=== PATIENT | female | born 1980 | race Caucasian/White ===

== ENCOUNTER → 2017-06-22 | Outpatient (CLI) | payer OTHER | LOC: COL.RAD 12:26 | DX: Z31.41 Encounter for fertility testing (principal) ==

== ENCOUNTER → 2017-08-12 | Outpatient (CLI) | payer OTHER | LOC: COL.RAD 12:00 | DX: N83.291 Other ovarian cyst, right side (principal) ==

== ENCOUNTER → 2017-08-22 | Outpatient (CLI) | payer OTHER | LOC: COL.RAD 10:27 | DX: N97.9 Female infertility, unspecified (principal) ==